=== PATIENT | male | born 1975 | race American Indian/Alaskan Native ===

== ENCOUNTER 2019-08-18 15:51 | Emergency (ER) | payer SELFPAY ==
[2019-08-18 21:26] VITALS: BP 137/91
--- NOTE | 2019-08-18 21:30 | Event Note ---
ED Screening Note Date of service: 08/18/19 Time: 21:27 ED Screening Note: This is a 44 y.o. M. that presents to the ER with headache for 2 weeks that is intermittent. Reports intermittent elevated blood pressure without PCP follow up. Patient reports photophobia and dizziness. Reports headaches in the past only with elevated blood pressure. PMH of HTN Off medication for 1 year. This initial assessment/diagnostic orders/clinical plan/treatment(s) is/are subject to change based on patients health status, clinical progression and re- assessment by fellow clinical providers in the ED. Further treatment and workup at subsequent clinical providers discretion. Patient/guardian urged not to elope from the ED as their condition may be serious if not clinically assessed and managed. Initial orders include:
[2019-08-18] MEDS ORDERED: diphenhydrAMINE 25 MG CAP PO ONE (22:51)
[2019-08-18] MEDS ORDERED: predniSONE 20 MG TAB PO ONE (22:52)
[2019-08-18] MEDS ORDERED: METOCLOPRAMIDE 10 MG TAB PO ONE (22:52)
[2019-08-18] MEDS ORDERED: ACETAMINOPHEN 500 MG TAB PO ONE (22:52)
--- NOTE | 2019-08-18 23:58 | Emergency Department Report ---
ED Headache HPI - General Chief Complaint: Headache Stated Complaint: BP HIGH Time Seen by Provider: 08/18/19 21:26 - History of Present Illness Initial Comments: Mr. Martell is a 44-year-old F combative male with a history of hypertension who presents for intermittent headaches for the past 2 weeks. Patient has a history of same this headache is in the usual location as his usual headache 4/ 10 sharp frontal. Patient exacerbated by activity or movement pain is relieved by rest. There is no photophobia, there is no eye pain, there is no nausea vomiting. Patient is hammertoe steady gait, there is no dizziness, no lightheadedness, no shortness of breath or chest pain,. BP medication amlodipine and hydrochlorothiazide. Timing/Duration: waxing and waning, other (2 weeks ) Quality: moderate Head Injury Location: frontal Recent Head Trauma: occasional headaches Modifying Factors: improves with: movement Associated Symptoms: denies: nausea/vomiting, seizures, sinus infection, stiff neck, weakness Allergies/Adverse Reactions: Allergies No Known Allergies Allergy (Unverified 08/18/19 17:07) Home Medications: Ambulatory Orders Acetaminophen [Acetaminophen TAB] 1,000 mg PO Q6HR PRN #30 tablet 08/19/19 Metoclopramide [Reglan] 10 mg PO TID PRN #30 tab 08/19/19 amLODIPine 10 mg PO DAILY 30 Days #30 tab 08/19/19 diphenhydrAMINE [Benadryl CAP] 25 mg PO Q8HR PRN #30 capsule 08/19/19 hydroCHLOROthiazide [HCTZ] 25 mg PO QDAY 30 Days #30 tablet 08/19/19 ED Review of Systems ROS: Stated complaint: BP HIGH Other details as noted in HPI Constitutional: denies: chills, fever Eyes: denies: eye pain, eye discharge, vision change ENT: denies: ear pain, throat pain, congestion Respiratory: denies: cough, shortness of breath, wheezing Cardiovascular: denies: chest pain, palpitations Endocrine: no symptoms reported Gastrointestinal: as per HPI Genitourinary: denies: urgency, dysuria Musculoskeletal: denies: back pain, joint swelling, arthralgia Skin: denies: rash, lesions Neurological: headache. denies: vertigo Psychiatric: denies: anxiety, depression Hematological/Lymphatic: denies: easy bleeding, easy bruising ED Past Medical Hx - Past Medical History Previous Medical History?: Yes Hx Hypertension: Yes - Surgical History Past Surgical History?: No - Social History Smoking Status: Current Every Day Smoker Substance Use Type: Alcohol - Medications Home Medications: Home Medications Medication Instructions Recorded Confirmed Last Taken Type Acetaminophen [Acetaminophen TAB] 1,000 mg PO Q6HR PRN #30 tablet 08/19/19 Unknown Rx Metoclopramide [Reglan] 10 mg PO TID PRN #30 tab 08/19/19 Unknown Rx amLODIPine 10 mg PO DAILY 30 Days #30 tab 08/19/19 Unknown Rx diphenhydrAMINE [Benadryl CAP] 25 mg PO Q8HR PRN #30 capsule 08/19/19 Unknown Rx hydroCHLOROthiazide [HCTZ] 25 mg PO QDAY 30 Days #30 tablet 08/19/19 Unknown Rx ED Physical Exam - General Limitations: No Limitations General appearance: alert, in no apparent distress - Head Head exam: Present: atraumatic, normocephalic, normal inspection - Eye Eye exam: Present: normal appearance, PERRL, EOMI. Absent: conjunctival injection, nystagmus Pupils: Present: normal accommodation - ENT ENT exam: Present: normal orophraynx, mucous membranes moist, TM's normal bilaterally, normal external ear exam - Neck Neck exam: Present: normal inspection, full ROM. Absent: tenderness, meningismus - Expanded Neck Exam Expanded Neck exam: Absent: midline deformity, anterior neck swelling, tracheal deviation - Respiratory Respiratory exam: Present: normal lung sounds bilaterally. Absent: respiratory distress, wheezes, stridor, chest wall tenderness - Cardiovascular Cardiovascular Exam: Present: regular rate, normal rhythm, normal heart sounds. Absent: systolic murmur, diastolic murmur, rubs, gallop - GI/Abdominal GI/Abdominal exam: Present: soft, normal bowel sounds. Absent: distended, tenderness, bruit, hernia - Rectal Rectal exam: Present: deferred - Extremities Exam Extremities exam: Present: normal inspection, full ROM, normal capillary refill. Absent: tenderness - Back Exam Back exam: Present: normal inspection, full ROM. Absent: tenderness, CVA tenderness (R), CVA tenderness (L), muscle spasm, paraspinal tenderness, vertebral tenderness, rash noted - Expanded Back Exam Expanded Back exam: Absent: saddle anesthesia Back exam: Negative Straight Leg Raising: Left, Right - Neurological Exam Neurological exam: Present: alert, oriented X3, CN II-XII intact, normal gait, reflexes normal. Absent: motor sensory deficit - Psychiatric Psychiatric exam: Present: normal affect, normal mood - Skin Skin exam: Present: warm, dry, intact, normal color. Absent: rash ED Course Vital Signs 08/18/19 08/18/19 17:01 23:15 Temperature 98.3 F Pulse Rate 98 H Respiratory 18 18 Rate Blood Pressure 137/91 O2 Sat by Pulse 98 Oximetry ED Medical Decision Making - Medical Decision Making Headache is improved , plan DC to home with rx for Tylenol, reglan, and Benadryl when necessary headache. refill hydrochlorothiazide and amlodipine patient will follow with PCP in 2-3 days patient is currently alert oriented 3 pain is 2/10 patient with no acute distress at this time Critical care attestation.: If time is entered above; I have spent that time in minutes in the direct care of this critically ill patient, excluding procedure time. ED Disposition Clinical Impression: Medication refill Headache Qualifiers: Headache type: unspecified Headache chronicity pattern: chronic headache Intractability: not intractable Qualified Code(s): R51 - Headache Disposition: DC-01 TO HOME OR SELFCARE Is pt being admited?: No Does the pt Need Aspirin: No Condition: Stable Instructions: Acute Headache (ED) Prescriptions: Acetaminophen [Acetaminophen TAB] 1,000 mg PO Q6HR PRN #30 tablet PRN Reason: headache amLODIPine 10 mg PO DAILY 30 Days #30 tab diphenhydrAMINE [Benadryl CAP] 25 mg PO Q8HR PRN #30 capsule PRN Reason: Headache hydroCHLOROthiazide [HCTZ] 25 mg PO QDAY 30 Days #30 tablet Metoclopramide [Reglan] 10 mg PO TID PRN #30 tab PRN Reason: Headache Referrals: YASMEEN PEREZ MD [Primary Care Provider] - 3-5 Days Forms: Work/School Release Form(ED) Time of Disposition: 00:14
== END 2019-08-19 00:20 | disposition home or self-care (01) ==
LOC: ED 15:51
DX: R51 Headache (principal); I10 Essential (primary) hypertension; F17.200 Nicotine dependence, unspecified, uncomplicated
CPT/HCPCS: 99282; J7512